=== PATIENT | female | born 1975 | race Native Hawaiian/Other Pacific Islander ===

== ENCOUNTER 2019-12-29 14:54 | Outpatient (CLI) | payer BC, OTHER | END 2019-12-29 19:18 | disposition home or self-care (01) | LOC: RAD 14:54 | DX: M25.511 Pain in right shoulder (principal) ==

== ENCOUNTER 2020-01-19 09:44 | Outpatient (CLI) | payer BC, OTHER | END 2020-01-19 20:48 | disposition home or self-care (01) | LOC: MRI 09:44 | DX: M25.511 Pain in right shoulder (principal); M89.8X1 Other specified disorders of bone, shoulder; M79.18 Myalgia, other site ==

== ENCOUNTER 2022-10-19 16:03 | Outpatient (CLI) | payer BC, OTHER | END 2022-10-19 21:36 | disposition home or self-care (01) | LOC: CT 16:03 | PROVIDERS: ATTEND Internal Medicine | DX: R10.9 Unspecified abdominal pain (principal); R10.2 Pelvic and perineal pain; R31.9 Hematuria, unspecified ==